=== PATIENT | male | born 1940 | race Caucasian/White ===

== ENCOUNTER 2023-02-20 08:16 | Day surgery (SDC) | payer MEDICARE ==
[~2023-02-20] VITALS: Ht 182.9 cm; Wt 79.1 kg
[2023-02-20] MEDS ORDERED: normal saline 1000ml 1,000 ML IV PRN ×2 (08:35)
[2023-02-20 08:48] VITALS: BP 94/66; PULSE 98; RESP 14; TEMP 98.3; O2SAT 97
[2023-02-20] MEDS ORDERED: midazolam 1 mg/ML 2ml injection ONE (09:27)
[2023-02-20] MEDS ORDERED: fentaNYL/PF 50MCG/1 ML 2ML syringe ONE (09:28)
[2023-02-20] MEDS ORDERED: heparin sodium, porcine/PF 100unit/ml 5ML syringe ONE (09:28)
[2023-02-20] MEDS ORDERED: LIDOcaine 1% 30ml preserv. free vial ONE (09:28)
[2023-02-20] MEDS ORDERED: ONDA4TAB12 PO (09:41)
[2023-02-20] MEDS ORDERED: NIAC-8 PO (09:41)
[2023-02-20] MEDS ORDERED: CARV3.12 PO (09:41)
[2023-02-20] MEDS ORDERED: UBID50TA3 PO (09:41)
[2023-02-20] MEDS ORDERED: LISI20TA28 PO (09:41)
[2023-02-20] MEDS ORDERED: MULT-1085 PO (09:41)
[2023-02-20] MEDS ORDERED: HYDR-3964 PO (09:41)
[2023-02-20] MEDS ORDERED: ASPI-611 PO (09:41)
[2023-02-20] MEDS ORDERED: LIDO30CR TOP (09:41)
[2023-02-20] MEDS ORDERED: KRIL500C PO (09:41)
[2023-02-20] MEDS ORDERED: ATOR40TA72 PO (09:41)
[2023-02-20 09:44] LABS: BASOPHILS # (AUTO) 0.1 X10'3 (0-0.2); BASOPHILS % (AUTO) 1.1 % (0-1); EOSINOPHILS # (AUTO) 0.2 X10'3 (0-0.9); EOSINOPHILS % (AUTO) 2.1 % (0-6); HEMATOCRIT 38.6 % (42.0-52.0); LYMPHOCYTES # (AUTO) 1.1 X10'3 (1.1-4.8); LYMPHOCYTES % (AUTO) 12.6 % (21-51); MEAN CORPUSCULAR HGB CONC 33.8 g/dL (33.0-36.5); MEAN CORPUSCULAR VOLUME 97.5 FL (78-98); MEAN PLATELET VOLUME 7.7 FL (7.4-10.4); MONOCYTES # (AUTO) 0.9 X10'3 (0-0.9); MONOCYTES % (AUTO) 10.5 % (2-12); NEUTROPHILS # (AUTO) 6.6 X10'3 (1.8-7.7); NEUTROPHILS % (AUTO) 73.7 % (42-75); PLATELET COUNT 216 X10'3 (140-440); RED BLOOD COUNT 3.96 X10'6 (4.70-6.10); RED CELL DISTRIBUTION WIDTH 13.5 % (11.5-14.5); WHITE BLOOD COUNT 8.9 X10'3 (4.5-11.0)
[2023-02-20 11:15] VITALS: BP 112/61; PULSE 101; RESP 16; O2SAT 97
[2023-02-20 11:30] VITALS: BP 102/56; PULSE 100; RESP 14; O2SAT 97
[2023-02-20 11:45] VITALS: BP 109/64; PULSE 98; RESP 12; O2SAT 97
[2023-02-20 12:00] VITALS: BP 108/76; PULSE 100; RESP 12; O2SAT 98
[2023-02-20 12:15] VITALS: BP 114/66; PULSE 101; RESP 14; O2SAT 97
== END 2023-02-20 12:32 | disposition home or self-care (01) ==
LOC: SSTAY O 08:16
PROVIDERS: ATTEND Radiology Vascular & Interventional Radiology
DX: C91.10 Chronic lymphocytic leukemia of B-cell type not having achieved remission (principal); I25.10 Atherosclerotic heart disease of native coronary artery without angina pectoris; I10 Essential (primary) hypertension; I25.2 Old myocardial infarction; E78.5 Hyperlipidemia, unspecified; Z86.73 Personal history of transient ischemic attack (TIA), and cerebral infarction without residual deficits; Z72.89 Other problems related to lifestyle; Z79.899 Other long term (current) drug therapy
CPT/HCPCS: 36415; 36561; 76937; 77001; 85025; 99152; 99153; C1788; J1642; J2250; J3010; J3490; J7030; 76942; C1894